=== PATIENT | female | born 1960 | race Caucasian/White ===

== ENCOUNTER 2020-07-30 17:07 | Observation (INO) | payer MEDICARE, SELFPAY ==
[2020-07-30 17:20] VITALS: BP 110/42; PULSE 92; RESP 26; TEMP 36.1; O2SAT 97; BMI 44.2
--- NOTE | 2020-07-30 17:45 | HMH.EDUTC ---
[facility] [place] Clinical Impression: Anemia, Esophageal varices Disposition: Still a Patient Condition on Discharge: Undetermined Additional Instructions: Transferred to ER for blood transfusion/admission/workup Referrals: PCP,No [Primary Care Provider] - Time of Disposition: 18:35 Medical Decision Making - Bud Inquiry Pt receiving controlled substance: No Vital Signs: 07/30/20 17:20 Temperature 96.9 F L Temperature Source Oral Pulse Rate [Right Brachial] 92 H Respiratory Rate 26 H Blood Pressure [Right Arm] 110/42 L Blood Pressure Mean [Right Arm] 64 Blood Pressure Source [Right Arm] Automatic Cuff Blood Pressure Position [Right Arm] Sitting 02 Sat by Pulse Oximetry 97 Oxygen Delivery Method Room Air - Lab Data Lab results reviewed: Yes: I reviewed the patient's lab results. Lab Results 07/30/20 17:45: WBC 3.7 L, RBC 1.81 L*, Hgb 5.2 L*, Hct 17.0 L*, MCV 94.0, MCH 29.0, MCHC 30.9 L, RDW 19.0 H, Plt Count 75 L, MPV 10.7 H, Neut % (Auto) 80.0, Lymph % (Auto) 11.7, [place] % (Auto) 5.3, Eos % (Auto) 2.4, Baso % (Auto) 0.6, Neut # (Auto) 3.0, Lymph # (Auto) 0.4 L, [place] # (Auto) 0.2, Eos # (Auto) 0.1, Baso # (Auto) 0.0 07/30/20 17:45: Sodium 138, Potassium 4.0, Chloride 106, Carbon Dioxide 27, Anion Gap 9.0, BUN 18 H, Creatinine 1.00, Estimated Creat Clear 49, Estimated GFR 57 L, Est GFR ( Amer) 68, Glucose 110 H, Calcium 9.0, Total Bilirubin 2.0 H, AST 32, ALT 17, Alkaline Phosphatase 114, Total Protein 6.4, Albumin 3.6, Globulin 2.8, Albumin/Globulin Ratio 1.3 Result diagrams: 07/30/20 17:45 07/30/20 17:45 Orders (Tests/Meds): ORDERS Category Date Time Status Type and Screen Stat BBK 07/30/20 18:17 Ordered Comprehensive Metabolic Panel Stat Lab 07/30/20 17:45 Results HBsAg Screen Stat Lab 07/30/20 18:01 Ordered HIV Panel [id number] Stat Lab 07/30/20 18:01 Ordered Hepatitis B Surf Ab Quant Stat Lab 07/30/20 18:01 Ordered Hepatitis C Antibody Stat Lab 07/30/20 18:01 Ordered Liver Panel Stat Lab 07/30/20 17:45 Received PT/PTT Stat Lab 07/30/20 17:45 Received TSH [Thyroid Stimulating Hormone] Stat Lab 07/30/20 17:45 Results Medical Decision Narrative: Daughter called her blood doctor who was concerned about bleeding esophageal varices [facility] [place] HPI - General Stated complaint: SOB.Weakness Time Seen by Provider: 07/30/20 17:45 Mode of Arrival: Ambulatory Source of Information: Patient Limitations: No Limitations Description of Symptoms (Recalled from Triage Doc. by RN): PATIENT C/O SOA AND FATIGUE X SEVERAL WEEKS HEENT Symptoms (Recalled from RN notes): No Resp Symptoms (Recalled from RN notes): Yes Skin Symptoms (Recalled from RN notes): No MS Symptoms (Recalled from RN notes): No Functional Status (Recalled from RN notes): WNL - History of Present Illness Provider Complaint: Patient has had ongoing shortness of breath, weakness X months. Has seen pulmonology and cardiology. Does have a heart murmur/valve problem dx'ed by cardiology but states she was told she didn't need to be seen again for a year. Has had normal CXR and CT. Told she was overweight, kyphotic and anemia. Last hemoglobin was 8.2. Has had blood and iron transfusions previously. H/O esophageal varices Relieving factors: none Exacerbating factors: none Associated symptoms: denies other symptoms Treatments prior to arrival: none - Related Data Allergies Allergy/AdvReac Type Severity Reaction Status Date / Time No Known Allergies Allergy Verified 07/30/20 17:39 - Worker's Comp Is this a Worker's Comp case?: No [facility] History - Hepatitis A Screen Drug use history?: No High risk sexual behaviors?: No History of sexually transmitted infection?: No Currently employed?: No Childcare worker?: No Do you have indoor plumbing?: Yes Do you have electricity?: Yes Attestation statement:: This patient has been screened for Hepatitis A risk factors. I have reviewed the patient's past medical his
[2020-07-30 18:05] LABS: Basophils % 0.6 % (0.1-2.0); Eosinophils # 0.1 K/mm3 (0.0-0.4); Monocytes # 0.2 K/mm3 (0.1-1.0); Platelet Count 75 K/mm3 (142-424)
[2020-07-30 18:10] LABS: Eosinophils % 2.4 % (0.1-12.0); Lymphocytes # 0.4 K/mm3 (0.7-4.5); Lymphocytes % 11.7 % (10-50); Mean Corpuscular HGB Conc 30.9 g/dL (31.8-35.4); Mean Platelet Volume 10.7 fl (7.4-10.4); Monocytes % 5.3 % (1.7-9.3); Red Blood Count 1.81 M/mm3 (4.20-5.40); White Blood Count 3.7 K/mm3 (4.8-10.8)
[2020-07-30 18:14] LABS: Chloride 106 mmol/L (98-107); Sodium 138 mmol/L (136-145)
[2020-07-30 18:16] LABS: Hemoglobin 5.2 g/dL (12.2-16.2)
[2020-07-30 18:17] LABS: Alanine Aminotransferase 17 U/L (12-78); Albumin Level 3.6 g/dl (3.5-5.0); Albumin/Globulin Ratio 1.3 (1.1-1.8); Alkaline Phosphatase 114 U/L (38-126); Aspartate Amino Transferase 32 U/L (14-36); Blood Urea Nitrogen 18 mg/dl (7-17); Carbon Dioxide 27 mmol/L (22.0-30.0); Creatinine Clearance Estimated 49 mL/min (50-200); Estimated Glomerular Filt Rate 57 ml/min (>60); GFR (African American) 68 ML/MIN (>60); Globulin 2.8 g/dL (1.3-3.2); Total Protein,Serum 6.4 g/dl (6.3-8.2)
[2020-07-30 18:18] LABS: Glucose 110 mg/dl (74-100)
[2020-07-30 18:29] LABS: Alanine Aminotransferase 17 U/L (12-78); Aspartate Amino Transferase 32 U/L (14-36); Bilirubin,Unconjugated 1.6 mg/dL (0.0-1.1)
[2020-07-30 18:30] LABS: Albumin Level 3.6 g/dl (3.5-5.0); Alkaline Phosphatase 111 U/L (38-126); Bilirubin,Direct 0.4 mg/dl (0.0-0.4); Bilirubin,Indirect 1.6 mg/dL (0.0-0.9); Total Protein,Serum 6.4 g/dl (6.3-8.2)
--- NOTE | 2020-07-30 18:33 | PC.NURSE ---
PATIENT SENT TO ER PER PIERCE JAFFE.
[2020-07-30 18:34] LABS: Activated Partial Thrombo Time 20.9 seconds (23.6-34.0); INR 1.08 (0.9-1.1)
[2020-07-30 18:36] VITALS: BP 122/75; PULSE 83; RESP 20; TEMP 36.7; O2SAT 96; BMI 44.3
[2020-07-30 18:45] VITALS: BP 118/61; PULSE 92; O2SAT 98
[2020-07-30 18:48] LABS: Thyroid Stimulating Hormone 1.16 uIU/mL (0.465-4.68)
--- NOTE | 2020-07-30 19:06 | HMH.EDGENADL ---
ED Disposition Clinical Impression: RODRIGUEZ (nonalcoholic steatohepatitis) Esophageal varices Qualifiers: Esophageal varices type: unspecified type Esophageal varices bleeding: without bleeding Qualified Code(s): I85.00 - Esophageal varices without bleeding Hemolytic anemia Qualifiers: Hemolytic anemia type: acquired, unspecified Qualified Code(s): D59.9 - Acquired hemolytic anemia, unspecified Disposition: Admitted as Observation Condition on Discharge: Fair Referrals: PCP,No [Primary Care Provider] - - Critical Care Critical Care Time: No Attestation: On 07/30/20, the high probability of a clinically significant, sudden or life threatening deterioration of the following system(s) required my full and direct attention, intervention and personal management. The time I documented below is in addition to time spent performing reported procedures but includes the following listed in this critical care notation. Medical Decision Making - Bud Inquiry Pt receiving controlled substance: No Vital Signs: 07/30/20 17:20 07/30/20 18:36 07/30/20 18:45 Temperature 96.9 F L 98.1 F Temperature Source Oral Oral Pulse Rate [Right Brachial] 92 H 83 92 H Respiratory Rate 26 H 20 Blood Pressure [Right Arm] 110/42 L 122/75 118/61 Blood Pressure Mean [Right Arm] 64 90 80 Blood Pressure Source [Right Arm] Automatic Cuff Automatic Cuff Automatic Cuff Blood Pressure Position [Right Arm] Sitting Sitting Sitting 02 Sat by Pulse Oximetry 97 96 98 Oxygen Delivery Method Room Air Room Air Room Air - Lab Data Lab Results 07/30/20 17:45: WBC 3.7 L, RBC 1.81 L*, Hgb 5.2 L*, Hct 17.0 L*, MCV 94.0, MCH 29.0, MCHC 30.9 L, RDW 19.0 H, Plt Count 75 L, MPV 10.7 H, Neut % (Auto) 80.0, Lymph % (Auto) 11.7, [place] % (Auto) 5.3, Eos % (Auto) 2.4, Baso % (Auto) 0.6, Neut # (Auto) 3.0, Lymph # (Auto) 0.4 L, [place] # (Auto) 0.2, Eos # (Auto) 0.1, Baso # (Auto) 0.0 07/30/20 17:45: Sodium 138, Potassium 4.0, Chloride 106, Carbon Dioxide 27, Anion Gap 9.0, BUN 18 H, Creatinine 1.00, Estimated Creat Clear 49, Estimated GFR 57 L, Est GFR ( Amer) 68, Glucose 110 H, Calcium 9.0, Total Bilirubin 2.0 H, AST 32, ALT 17, Alkaline Phosphatase 114, Total Protein 6.4, Albumin 3.6, Globulin 2.8, Albumin/Globulin Ratio 1.3, TSH 1.16 07/30/20 17:45: PT 11.0, INR 1.08, APTT 20.9 L 07/30/20 17:45: Total Bilirubin 2.0 H, Direct Bilirubin 0.4, Conjugated Bilirubin 0.0, Indirect Bilirubin 1.6 H, Unconjugated Bilirubin 1.6 H, AST 32, ALT 17, Alkaline Phosphatase 111, Total Protein 6.4, Albumin 3.6 07/30/20 17:45: Retic Count (auto) 7.1 H 07/30/20 18:20: Crossmatch (AHG) See Detail 07/30/20 18:20: Troponin I 0.03 07/30/20 19:05: Stool Occult Blood Negative Result diagrams: 07/30/20 17:45 07/30/20 17:45 Orders (Tests/Meds): ED MEDICATIONS Generic Name Dose Route Start Last Admin Trade Name Angelica PRN Reason Stop Dose Admin Sodium Chloride 250 mls @ 25 mls/hr 07/30/20 19:15 Sod Chlor 0.9% 250ml Bag IV 07/31/20 19:14 .Q10H MANNY ORDERS Category Date Time Status PRBC [Red Blood Cells] Stat BBK 07/30/20 18:20 Received Type and Screen Stat BBK 07/30/20 18:20 Received Covid-19 Nasal PCR ([facility]) Routine Lab 07/30/20 20:01 Received HBsAg Screen Stat Lab 07/30/20 18:20 Received HIV Panel [id number] Stat Lab 07/30/20 18:20 Received Hepatitis B Surf Ab Quant Stat Lab 07/30/20 18:20 Received Hepatitis C Antibody Stat Lab 07/30/20 18:20 Received LDH [Lactate Dehydrogenase] Stat Lab 07/30/20 17:45 Received Troponin I Q3H Lab 07/30/20 22:15 Ordered Troponin I Q3H Lab 07/31/20 01:15 Ordered - ECG Data Tracing #1 EKG interpreted by Anderson Parr MD: Rhythm: sinus Rate: 88 Eleanor: normal Ectopy: Premature atrial contractions Conduction: normal ST Segment Changes: none T Wave Changes: none Q Waves: none No evidence of acute ischemia or injury - Physician Consults Physician Consulted: Royer Time: 20:13 Reason -: Admis
[2020-07-30 19:14] LABS: Occult Blood,Stool Negative (Negative)
--- NOTE | 2020-07-30 19:19 | ECG_ITS ---
APPROVED REPORT Exam: Resting ECG HR:88 bpm ECG Measurements Heart Rate [address] 138 P 43 QRSd 86 QRS 64 QT 396 T 31 QTc 479 Conclusion Sinus rhythm with premature supraventricular complexes Otherwise normal ECG Electronically signed by : Harrison Shrestha, 07/31/2020 20:37:15
[2020-07-30 19:38] LABS: Troponin I 0.03 ng/ml (0.00-0.034)
[2020-07-30 20:16] LABS: Reticulocyte % (Auto) 7.1 % (0.9-3.2)
[2020-07-31] VITALS (36 sets, daily range): BP systolic 104–151; BP diastolic 39–85; PULSE 80–100; RESP 16–22; TEMP 36.4–37.1; O2SAT 83–98; BMI 39.4; BMI 39.2
--- NOTE | 2020-07-31 00:26 | PC.NURSE ---
patient up to floor via stretcher.
--- NOTE | 2020-07-31 00:27 | PC.NURSE ---
patient up to floor via wheelchair.
--- NOTE | 2020-07-31 03:19 | PC.NURSE ---
Pt restless. States that she can't sleep. Pt was educated on giving medication, ambien time to take affect. Pt had requested earlier to have something for sleep and home medication phenergan. was notified and Ambien 10 mg PO and Phenergan 26 mg PO Q6 prn was ordered. Orders carried out. Pt acknowledged that she was feeling anxious. Pt reassured and educated on relaxation techniques. VSS. Awaiting blood from [facility]. New IV placed in LUE #20. No other concerns. Will continue to monitor.
[2020-07-31 06:29] LABS: POC Glucose,Bedside 157 (70-110)
--- NOTE | 2020-07-31 06:51 | PC.NURSE ---
Pt is currently resting in bed at this time. Ambulated to BR this AM. Lab consulted for update on blood. Will be obtaining blood from [facility] around 0700.
[2020-07-31 07:06] LABS: Basophils % 0.6 % (0.1-2.0); Eosinophils # 0.1 K/mm3 (0.0-0.4); Eosinophils % 1.3 % (0.1-12.0); Lymphocytes # 0.6 K/mm3 (0.7-4.5); Lymphocytes % 14.3 % (10-50); Mean Corpuscular HGB Conc 30.4 g/dL (31.8-35.4); Mean Corpuscular Hemoglobin 28.7 pg (27.0-31.2); Mean Corpuscular Volume 94.5 fl (81-99); Mean Platelet Volume 9.7 fl (7.4-10.4); Monocytes # 0.2 K/mm3 (0.1-1.0); Monocytes % 5.9 % (1.7-9.3); Neutrophils # 3.1 K/mm3 (1.8-7.8); Neutrophils % 77.9 % (37.0-80.0); Platelet Count 82 K/mm3 (142-424); Red Blood Count 1.75 M/mm3 (4.20-5.40); Red Cell Distribution Width 19.3 % (11.5-17.5)
[2020-07-31 07:20] LABS: Hematocrit 16.6 % (37.0-47.0)
--- NOTE | 2020-07-31 07:35 | PC.NURSE ---
notified of critical lab results, H&H. was also notified of pt luings noted to have some wheezing. MD will assess pt this AM. Pt also requested tylenol. New orders received: Tylenol 650 mg PO Q4 prn.
[2020-07-31 07:44] LABS: Lactate Dehydrogenase 220 U/L (313-618)
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
[2020-07-31 11:29] LABS: POC Glucose,Bedside 129 (70-110)
[2020-07-31 13:26] LABS: Iron 70 ug/dL (37-170)
[2020-07-31 13:36] LABS: Total Iron Binding Capacity 439 ug/dL (265-497)
--- NOTE | 2020-07-31 14:02 | HMH.PHAVTE ---
[facility] Pharmacy VTE Monitoring - Patient Demographics Admission date: 07/31/20 Report Date: 07/31/20 Time: 14:02 Allergies/Adverse Reactions: Patient Allergies No Known Allergies Allergy (Verified 07/30/20 17:39) Height: 1.63 m Weight: 104.099 kg Patient Problems: Current Active Problems Esophageal varices (Chronic) Hemolytic anemia (Chronic) RODRIGUEZ (nonalcoholic steatohepatitis) (Chronic) Type 2 diabetes mellitus (Chronic) Hypertension (Chronic) Anemia (Acute) Symptomatic anemia (Acute) Anxiety disorder (Acute) - VTE Risk Labs: VTE Related Lab Results Hgb 5.0 g/dL (12.2-16.2) L* 07/31/20 06:30 Hct 16.6 % (37.0-47.0) L* 07/31/20 06:30 Plt Count 82 K/mm3 (142-424) L 07/31/20 06:30 PT 11.0 seconds (9.4-11.8) 07/30/20 17:45 INR 1.08 (0.9-1.1) 07/30/20 17:45 APTT 20.9 seconds (23.6-34.0) L 07/30/20 17:45 BUN 18 mg/dl (7-17) H 07/30/20 17:45 Creatinine 1.00 mg/dl (0.52-1.04) 07/30/20 17:45 Estimated Creat Clear 49 mL/min (50-200) 07/30/20 17:45 - Prophylaxis VTE Prophylaxis Ordered?: Yes Types of VTE Prophylaxis: TEDS Knee High Location of Applied Device: Bilateral Lower Extremeties
[2020-07-31 14:03] LABS: Ferritin 5.86 ng/ml (11.1-264)
--- NOTE | 2020-07-31 15:05 | PC.NURSE ---
NOTIFIED DR BRENNAN THAT PT IS VERY ANXIOUS AND WOULD LIKE SOMETHING TO CALM HER NERVES. 0.5MG ATIVAN IV ONE TIME DOSE NOW.
[2020-07-31 15:52] LABS: POC Glucose,Bedside 186 (70-110)
--- NOTE | 2020-07-31 16:30 | PC.NURSE ---
A&OX4. PT HAD TO BE PLACED ON 2L NC AT BEGINNING OF SHIFT DUE TO LOW OXYGEN SAT, BUT AFTER RECEIVING BLOOD PT WAS ABLE TO BE BACK ON RA. SHE IS CURRENTLY ON RA TOLERATING WELL. EXPIRATORY WHEEZES NOTED THROUGHOUT. OCCASIONAL NONPRODUCTIVE COUGH NOTED. HAND ASSURANCE MANAGER EQUAL. +2 PULSES NOTED THROUGHOUT. NO EDEMA NOTED. TEDS IN PLACE. ACTIVE BOWEL SOUNDS HEARD IN ALL 4 QUADRANTS. SOFT AND TENDER ABDOMEN. NO REPORTS OF BM THUS FAR. PT VOIDS PER BATHROOM INDEPENDENTLY. CAME TO VISIT TODAY. PT HAS HAD INCREASED ANXIETY TODAY. PT STATES HER ANXIETY HAS BEEN GETTING WORSE OVER THE LAST FEW MONTHS AND SHE PLANS TO TALK TO HER PCP ABOUT THAT WHEN SHE GOES BACK HOME. PT HAS HAD A TOTAL OF 1MG OF ATIVAN. IT SEEMS TO HELP THE PT. PT REPORTED NAUSEA ONCE AND RECEIVED ZOFRAN PER AUG. ON REASSESSMENT, PT STATED NAUSEA HAD EASED. PT RECEIVED 2 UNITS OF BLOOD THIS SHIFT AND TOLERATED WELL. BED IN LOWEST POSITION. CALL LIGHT WITHIN REACH. VSS. WILL CONTINUE TO MONITOR.
[2020-07-31 17:56] LABS: Hematocrit 22.2 % (37.0-47.0)
--- NOTE | 2020-07-31 17:56 | PC.NURSE ---
LAB CALLED WITH CRITICAL RESULT. HEMOGLOBIN 7.[address] BRENNAN[address] AWAITING CALL BACK.
--- NOTE | 2020-07-31 19:24 | PC.NURSE ---
DR BRENNAN CALLED BACK AND WAS NOTIFIED OF CRITICAL LABS. HE STATED TO GIVE 2 UNITS OF BLOOD. ORDER BENADRYL AND TYLENOL TO BE GIVEN PRIOR TO TRANSFUSION. I ALSO EXPLAINED PT WOULD LIKE SOMETHING FOR ANXIETY TO HELP HER SLEEP. HE STATED TO ORDER RESTORIL 15MG PO. ORDERS FAX TO PHARMACY. RIGHT BEFORE DR BRENNAN CALLED BACK PT'S DAUGHTER CALLED AND REQUESTED FOR PT NOT TO HAVE AMBIEN BECAUSE IT MAKES HER CRAZY AND SHE WILL DO THINGS SHE DOESN'T REMEMBER. SHE SAID THE PATIENT MAY FALL ON IT BECAUSE SHE HAS A HX OF FALLING ON THIS SPECIFIC MEDICATION. I EXPLAINED PT WAS GIVEN A ONE TIME DOSE LAST NIGHT AND THIS NURSE WOULD MAKE MD AWARE AND MAKE SURE SHE DOESN'T GET IT. DAUGHTER ALSO EXPLAINED PT TOOK HER HOME MEDICATIONS TONIGHT BY HERSELF. EARLIER IN THE DAY, PT'S STATED HE BROUGHT HOME MEDS IN AND SAID THEY WERE IN THE PT'S PILL CONTAINER. I EXPLAINED WE WOULDN'T BE ABLE TO USE IT BECAUSE THE PILLS AREN'T IN THEIR PILL BOTTLES TO BE ABLE TO PROPERLY IDENTIFY EACH PILL AND TO PLEASE TAKE IT HOME. THIS NURSE TOLD THE DAUGHTER I WOULD GO DISCUSS THE SITUATION WITH THE PT TO SEE WHAT EXACTLY SHE TOOK SO; WE DIDN'T OVER MEDICATE THE PT TONIGHT. THIS NURSE ALONG Trevon MONK RN TALKED WITH THE PT AND SHE STATED SHE TOOK 2 PROTONIX AND 1 CARAFATE. I EXPLAINED TO THE PT SHE IS RECEIVING THOSE MEDICATIONS HERE AND OVER MEDIATING THE PT COULD CAUSE SAFETY ISSUES. WE EXPLAINED TOO MUCH PROTONIX COULD CAUSE A BLEEDING ULCER. PT STATED SHE TOOK THEM AFTER RECEIVING ZOFRAN BECAUSE IT DIDN'T HELP. THIS NURSE WAS NEVER NOTIFIED. SHE TOLD THIS NURSE THE ZOFRAN HELPED. THIS NURSE ASKED THE PT IF SHE HAD ANY OTHER MEDICATIONS IN HER POSSESSION AND SHE STATED SHE WASN'T SURE, THERE COULD POSSIBLY BE SOME IN HER BAG. PT STATED I WAS WELCOME TO LOOK THROUGH THEM. 3 PILLS AND 2 INHALERS WERE FOUND IN THE BAG AND LOCKED IN THE DRAWER. FAMILY IS AWARE TO NOT BRING HOME MEDS TOMORROW UNLESS THERE IS A PILL BOTTLE. WILL CONTINUE TO MONITOR THE PT. CURRENTLY VSS. DR BRENNAN IS AWARE OF THIS SITUATION.
[2020-07-31 22:47] LABS: POC Glucose,Bedside 145 (70-110)
[2020-08-01] VITALS (18 sets, daily range): BP systolic 92–134; BP diastolic 43–80; PULSE 70–96; RESP 17–20; TEMP 36.6–37.9; O2SAT 90–96; BMI 40.3
--- NOTE | 2020-08-01 03:21 | PC.NURSE ---
Pt is A&Ox4 and has shown no signs of being confused this shift. Pt has been very pleasant this shift and has shown little signs of anxiety. Pt received (2) units of blood this shift and has had no s/s of blood transfusion reaction. Pt was given IV Benadryl and tylenol 325 mg prior to blood administration per MD Linton. Pt has had audible wheezes this entire shift. When pt's pre-blood vitals were taken, this nurse noted that pt's o2 was between 85-88%. on RA. Pt placed on 2L NC w/ favorable results, o2 sats between 90-95%. Pt has seemed to have rested well w/ HS dose of Restoril. Pt noted resting w/ eyes closed during most of the vitals for the blood transfusion. Pt has turned self independently in bed. Pt requires standby assist to and from commode. VSS. No other acute changes or complaints at this time. This nurse did talk to pt's daughter and over the phone at the beginning of this shift. Pt's daughter expressed concern over pt's meds that were found in belongings bag that pt allowed Drake Davidson RN to retrieve, being locked up. This RN explained to daughter that all home medications must be locked in med drawer and/or sent home with family to prevent any medication errors. Daughter verbalized understanding but then questioned this RN on pt's sleeping medication. This RN explained to daughter that we did not carry the Davyigo that pt normally takes at night, but MD Linton was made aware that pt was requesting something for sleep and that MD Linton did order Restoril. Daughter become very hesitant that her mother could not take that, stating that pt can only take the [place] and stated she would drive the medication up to the hospital. Pt's daughter stated that her mother's home meds were not in prescription bottles and the bottles were at her mother's home in [facility]. This RN explained that the medicine would first have to be verified by pharmacy and it had to be in a labeled prescription bottle.Daughter then verbalized understanding and stated she would discuss this with MD Linton in the morning.
[2020-08-01 04:31] LABS: Hemoglobin 7.7 g/dL (12.2-16.2)
[2020-08-01 04:32] LABS: Hematocrit 23.8 % (37.0-47.0)
[2020-08-01 06:42] LABS: POC Glucose,Bedside 162 (70-110)
--- NOTE | 2020-08-01 09:10 | P.PN_ITS ---
Internal Medicine - PN: Subj *Date: 08/01/20 *Time: 09:10 Interval history: Patient seen and examined this morning. States she rested well through the night. Her hemoglobin after the first 2 units of packed cells uma to 7.0. After the third and fourth units, hemoglobin only came up to 7.7. She still complains of dyspnea on exertion. Denies abdominal pain or nausea. She has not had a bowel movement. Exam Vital signs and Labs for Last 24 Hours: Temp Pulse Resp BP Pulse Ox 97.8 F 89 20 125/57 L 94 L 08/01/20 08:00 08/01/20 08:00 08/01/20 08:00 08/01/20 08:00 08/01/20 08:00 Laboratory Results - last 24 hr 07/30/20 18:20: Blood Type O Negative, Antibody Screen Positive, Crossmatch (AHG) See Detail 07/30/20 18:20: Antibody Identification Anti-K 07/31/20 06:30: Iron 70, TIBC 439, Iron Saturation 15.68131, Ferritin 5.86 L 07/31/20 11:22: POC Glucose 129 H 07/31/20 15:40: POC Glucose 186 H 07/31/20 17:25: Hgb 7.0 L* D, Hct 22.2 L* 07/31/20 21:07: POC Glucose 145 H 08/01/20 04:15: Hgb 7.7 L*, Hct 23.8 L* 08/01/20 06:09: POC Glucose 162 H I & O for Last 24 hours: Intake & Output 07/29/20 07/30/20 07/31/20 08/01/20 11:59 11:59 11:59 11:59 Intake Total 1200 / 1200 1602.29 / 1602.29 Balance 1200 / 1200 1602.29 / 1602.29 Weight 229 lb 8 oz 236 lb Narrative: Color has improved. She appears in no distress. Chest with coarse breath sounds. No rales or wheezes. Heart is regular. Extremities no edema. Assessment and Plan (1) Hemolytic anemia Status: Chronic Qualifiers: Hemolytic anemia type: acquired, unspecified Qualified Code(s): D59.9 - Acquired hemolytic anemia, unspecified Category: Medical Code(s): D58.9 - Hereditary hemolytic anemia, unspecified (2) Symptomatic anemia Status: Acute Category: Medical Code(s): D64.9 - Anemia, unspecified (3) Type 2 diabetes mellitus Status: Chronic Category: Medical Code(s): E11.9 - Type 2 diabetes mellitus without complications (4) Esophageal varices Status: Chronic Qualifiers: Esophageal varices type: unspecified type Esophageal varices bleeding: without bleeding Qualified Code(s): I85.00 - Esophageal varices without b leeding Category: Medical Code(s): I85.00 - Esophageal varices without bleeding (5) RODRIGUEZ (nonalcoholic steatohepatitis) Status: Chronic Category: Medical Code(s): K75.81 - Nonalcoholic steatohepatitis (RODRIGUEZ) (6) Hypertension Status: Chronic Category: Medical Code(s): I10 - Essential (primary) hypertension (7) Anxiety disorder Status: Acute Category: Medical Code(s): F41.9 - Anxiety disorder, unspecified - Assessment and plan all Dx Assessment and Plan for all problems:: Plan to transfuse with 1 or 2 additional units with a goal hemoglobin between 8 and 9. Resume Bumex today.
[2020-08-01 11:15] LABS: POC Glucose,Bedside 134 (70-110)
--- NOTE | 2020-08-01 13:07 | HMH.PHAINT ---
SPOKE TO DR BRENNAN, PATIENT'S BLINDSTITCH HEMMER REQUESTED PATIENT GET AN IRON INFUSION. SPOKE TO RONA BOYCE, OKAY TO GIVE FERAHEME IRON INFUSION INPATIENT.
--- NOTE | 2020-08-01 16:08 | PC.NURSE ---
Pt has been pleasant and cooperative this shift. A&O X4. No complaints of pain. Pt received O2 via NC @ 2 LPM for several hours this AM due to O2 sats. being <90%. Pt is currently on room air with sats. >90% and has O2 via NC @ 2 LPM at bedside if needed again. Lung sounds reveal expiratory wheezing. No edema noted. Skin is C/D/I. Pt ambulates independently to/from the bathroom and throughout the room. No BM thus far this shift. FSBS results have been 134 and 136, neither of which have required insulin coverage per sliding scale. Received order from Dr. Lintno to hold the 2 units of PRBC's that were ordered this AM. 20 G peripheral IV in the RT AC is patent and SL. VSS. Call light within reach. Will continue to monitor.
[2020-08-01 16:13] LABS: POC Glucose,Bedside 136 (70-110)
[2020-08-01 20:40] LABS: POC Glucose,Bedside 191 (70-110)
--- NOTE | 2020-08-02 03:12 | PC.NURSE ---
Shortness of air reported with movement. No c/o n/v/d, dizziness or pain this shift. Audible expiratory wheezes noted; denies cough. Resting in bed with eyes closed at this time.
[2020-08-02 03:49] VITALS: BP 102/55; PULSE 72; RESP 22; TEMP 37; O2SAT 90
[2020-08-02 04:48] VITALS: BMI 40.3
[2020-08-02 05:42] LABS: POC Glucose,Bedside 223 (70-110)
[2020-08-02 08:00] VITALS: BP 104/47; PULSE 74; RESP 18; TEMP 36.7; O2SAT 96
--- NOTE | 2020-08-02 08:42 | HMH.ACPN2 ---
<Karen Mcpherson - Last Filed: 08/02/20 08:42> Internal Medicine - PN: Subj *Date: 08/02/20 *Time: 08:42 Interval history: Patient continues to have shortness of breath and periodic wheezing. She states she saw her ward aide week or 2 ago with a normal chest x-ray and CT of her lungs. She has been up in the room and to the bathroom without difficulty. She is eating without difficulty. She denies chest pain. She is voiding QS. Exam Vital signs and Labs for Last 24 Hours: Temp Pulse Resp BP Pulse Ox 98.1 F 74 18 104/47 L 96 08/02/20 08:00 08/02/20 08:00 08/02/20 08:00 08/02/20 08:00 08/02/20 08:00 Laboratory Results - last 24 hr 07/30/20 18:20: Blood Type O Negative, Antibody Screen Positive, Crossmatch (AHG) See Detail 08/01/20 10:55: POC Glucose 134 H 08/01/20 15:56: POC Glucose 136 H 08/01/20 20:20: POC Glucose 191 H 08/02/20 05:35: POC Glucose 223 H I & O for Last 24 hours: Intake & Output 07/30/20 07/31/20 08/01/20 08/02/20 11:59 11:59 11:59 11:59 Intake Total 1200 / 1200 1602.29 / 1602.29 1370 / 1370 Output Total 250 / 250 Balance 1200 / 1200 1602.29 / 1602.29 1120 / 1120 Weight 229 lb 8 oz 236 lb 236 lb - Constitutional no acute distress, obese Comments: Sitting up in the bed and appears comfortable. She appears dyspneic with talking. - *Routine Respiratory Exam Present: CTA bilaterally (Anteriorly and posteriorly. No wheezing at present) - *Routine Cardiovascular Exam Present: RRR - *Routine Abdominal Exam Present: soft, normoactive bowel sounds, obese. Absent: tenderness - *Routine Extremities Exam Absent: edema, calf tenderness - *Routine Neurological Exam Present: alert, oriented X3 Assessment and Plan (1) Hemolytic anemia Status: Chronic Qualifiers: Hemolytic anemia type: acquired, unspecified Qualified Code(s): D59.9 - Acquired hemolytic anemia, unspecified Category: Medical Code(s): D58.9 - Hereditary hemolytic anemia, unspecified (2) Symptomatic anemia Status: Acute Category: Medical Code(s): D64.9 - Anemia, unspecified (3) Type 2 diabetes mellitus Status: Chronic Category: Medical Code(s): E11.9 - Type 2 diabetes mellitus without complications (4) Esophageal varices Status: Chronic Qualifiers: Esophageal varices type: unspecified type Esophageal varices bleeding: without bleeding Qualified Code(s): I85.00 - Esophageal varices without bleeding Category: Medical Code(s): I85.00 - Esophageal varices without bleeding (5) RODRIGUEZ (nonalcoholic steatohepatitis) Status: Chronic Category: Medical Code(s): K75.81 - Nonalcoholic steatohepatitis (RODRIGUEZ) (6) Hypertension Status: Chronic Category: Medical Code(s): I10 - Essential (primary) hypertension (7) Anxiety disorder Status: Acute Category: Medical Code(s): F41.9 - Anxiety disorder, unspecified - Assessment and plan all Dx Assessment and Plan for all problems:: Patient will be discharged today with follow-up by her physicians. <Kamron Linton - Last Filed: 08/02/20 18:39> Internal Medicine - PN: Subj *Date: 08/02/20 *Time: 18:37 Exam Vital signs and Labs for Last 24 Hours: Temp Pulse Resp BP Pulse Ox 98.1 F 74 18 104/47 L 96 08/02/20 08:00 08/02/20 08:00 08/02/20 08:00 08/02/20 08:00 08/02/20 08:00 Laboratory Results - last 24 hr 07/30/20 18:20: Hep Bs Antigen Negative, Hep Bs Antibody, Quant <3.1 L, Hepatitis C Antibody <0.1, HIV 1&2 Ag/Ab, 4th Gen Non reactive 07/30/20 18:20: Crossmatch (AHG) See Detail 08/01/20 20:20: POC Glucose 191 H 08/02/20 05:35: POC Glucose 223 H I & O for Last 24 hours: Intake & Output 07/31/20 08/01/20 08/02/20 08/03/20 11:59 11:59 11:59 11:59 Intake Total 1200 / 1200 1602.29 / 1602.29 1370 / 1370 Output Total 250 / 250 Balance 1200 / 1200 1602.29 / 1602.29 1120 / 1120 Weight 229 lb 8 oz 236 lb 236 lb Assessment and Plan (1) Hemo
[2020-08-02 10:33] LABS: HIV Screen 4th Generation wRfx Non Reactive (Non Reactive)
[2020-08-02 11:49] LABS: Hepatitis B Surf Ab Quant <3.1 mIU/mL (Immunity>9.9); Hepatitis B Surface Antigen Negative (Negative); Hepatitis C Antibody <0.1 s/co ratio (0.0-0.9)
[2020-08-03 13:34] LABS: Haptoglobin 25 mg/dL (33-346)
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
[2020-08-08 05:22] LABS: Miscellaneous Test SEE LABCORP REPORT
== END 2020-08-02 09:08 | disposition home or self-care (01) ==
LOC: UTC 18:33 → ER 18:33 → 2ND 20:40
PROVIDERS: Physician Assistant; Admitting Provider Family Medicine; Emergency Provider Emergency Medicine; Visit Provider Family Medicine
DX: D59.8 Other acquired hemolytic anemias (principal); Z79.84 Long term (current) use of oral hypoglycemic drugs; Z79.51 Long term (current) use of inhaled steroids; I85.00 Esophageal varices without bleeding; K75.81 Nonalcoholic steatohepatitis (NASH); I10 Essential (primary) hypertension; E11.9 Type 2 diabetes mellitus without complications; Z79.899 Other long term (current) drug therapy; Z88.8 Allergy status to other drugs, medicaments and biological substances; Z72.0 Tobacco use
CPT/HCPCS: 36430; 36415; 80053; 80076; 82272; 82728; 82962; 83010; 83540; 83550; 83615; 84443; 84484; 85014; 85018; 85025; 85044; 85610; 85730; 86703; 86706; 86850; 86870; 87340; 87380; 93005; 99284; G0328; G0378; G0432; J2405; P9016; Q0138; U0003

== ENCOUNTER → 2020-08-05 13:57 | Outpatient (CLI) | payer MEDICARE, SELFPAY ==
[2020-08-05 14:10] LABS: Chloride 108 mmol/L (98-107); Potassium 4.3 mmoL/L (3.5-5.1); Sodium 143 mmol/L (136-145)
[2020-08-05 14:13] LABS: Alanine Aminotransferase 25 U/L (12-78); Albumin Level 3.7 g/dl (3.5-5.0); Albumin/Globulin Ratio 1.5 (1.1-1.8); Alkaline Phosphatase 114 U/L (38-126); Anion Gap 5.3 mEq/L (5-15); Aspartate Amino Transferase 68 U/L (14-36); Bilirubin,Total 1.3 mg/dl (0.2-1.3); Blood Urea Nitrogen 26 mg/dl (7-17); Calcium 9.1 mg/dl (8.4-10.2); Carbon Dioxide 34 mmol/L (22.0-30.0); Estimated Glomerular Filt Rate 73 ml/min (>60); GFR (African American) 89 ML/MIN (>60); Globulin 2.5 g/dL (1.3-3.2); Glucose 79 mg/dl (74-100); Total Protein,Serum 6.2 g/dl (6.3-8.2)
[2020-08-05 14:17] LABS: Basophils % 0.6 % (0.1-2.0); Eosinophils % 0.6 % (0.1-12.0); Hematocrit 28.4 % (37.0-47.0); Hemoglobin 8.9 g/dL (12.2-16.2); Lymphocytes # 0.7 K/mm3 (0.7-4.5); Lymphocytes % 16.3 % (10-50); Mean Corpuscular HGB Conc 31.3 g/dL (31.8-35.4); Mean Corpuscular Hemoglobin 30.6 pg (27.0-31.2); Mean Corpuscular Volume 97.7 fl (81-99); Mean Platelet Volume 8.7 fl (7.4-10.4); Monocytes # 0.3 K/mm3 (0.1-1.0); Monocytes % 6.4 % (1.7-9.3); Neutrophils # 3.2 K/mm3 (1.8-7.8); Neutrophils % 76.1 % (37.0-80.0); Platelet Count 58 K/mm3 (142-424); Red Blood Count 2.91 M/mm3 (4.20-5.40); Red Cell Distribution Width 21.4 % (11.5-17.5); White Blood Count 4.2 K/mm3 (4.8-10.8)
== END ==
PROVIDERS: Visit Provider Physician Assistant
DX: D58.9 Hereditary hemolytic anemia, unspecified (principal); E11.9 Type 2 diabetes mellitus without complications; I85.00 Esophageal varices without bleeding; Z79.84 Long term (current) use of oral hypoglycemic drugs
CPT/HCPCS: 80053; 85025

== ENCOUNTER 2020-09-14 12:56 | Outpatient (CLI) | payer MEDICARE, SELFPAY ==
[2020-09-14 13:30] VITALS: BP 126/65; PULSE 84; RESP 18; O2SAT 94
[2020-09-14 14:15] VITALS: BP 135/70; PULSE 85; RESP 18
== END 2020-09-14 14:15 | disposition home or self-care (01) ==
LOC: INF 12:56
PROVIDERS: Visit Provider Internal Medicine Hematology & Oncology
DX: D50.9 Iron deficiency anemia, unspecified (principal)
CPT/HCPCS: 96374; Q0138

== ENCOUNTER 2020-09-21 12:54 | Outpatient (CLI) | payer MEDICARE, SELFPAY ==
[2020-09-21 13:15] VITALS: BP 148/70; PULSE 76; RESP 18; TEMP 36.4; O2SAT 96
[2020-09-21 13:52] VITALS: BP 116/54; PULSE 58; RESP 18; O2SAT 99
== END 2020-09-21 13:52 | disposition home or self-care (01) ==
LOC: INF 12:54
PROVIDERS: Visit Provider Internal Medicine Hematology & Oncology
DX: D50.9 Iron deficiency anemia, unspecified (principal)
CPT/HCPCS: 96374; Q0138

== ENCOUNTER → 2020-12-02 15:55 | Outpatient (CLI) | payer MEDICARE, SELFPAY ==
[2020-12-02 16:35] LABS: Iron 64 ug/dL (37-170)
[2020-12-02 16:44] LABS: Total Iron Binding Capacity 441 ug/dL (265-497)
[2020-12-02 17:10] LABS: Ferritin 8.66 ng/ml (11.1-264)
[2020-12-03 10:24] LABS: Iron 62 ug/dL (37-170)
[2020-12-03 10:47] LABS: Total Iron Binding Capacity 439 ug/dL (265-497)
== END ==
PROVIDERS: Visit Provider Internal Medicine Hematology & Oncology
DX: D58.9 Hereditary hemolytic anemia, unspecified (principal); D50.9 Iron deficiency anemia, unspecified
CPT/HCPCS: 36415; 82728; 83540; 83550